=== PATIENT | male | born 1950 | race Caucasian/White ===

== ENCOUNTER 2019-01-24 12:53 | Outpatient (CLI) | payer MEDICARE ==
[2019-01-24] MEDS ORDERED: METO200T47 PO (13:39)
[2019-01-24] MEDS ORDERED: GLIM4TAB2 PO (13:39)
[2019-01-24] MEDS ORDERED: SPIR25TA5 PO (13:39)
[2019-01-24] MEDS ORDERED: LEVO150T5 PO (13:39)
[2019-01-24] MEDS ORDERED: POTA20TA6 PO (13:39)
[2019-01-24] MEDS ORDERED: LOSA100T14 PO (13:39)
[2019-01-24] MEDS ORDERED: LIRA0.6P INJ (13:39)
[2019-01-24] MEDS ORDERED: INSU100I13 SC (13:39)
[2019-01-24] MEDS ORDERED: SIMV40TA3 PO (13:39)
[2019-01-24] MEDS ORDERED: CANA300T PO (13:39)
[2019-01-24 14:07] LABS: BASOPHILS # (AUTO) 0.04 x10^3/uL (0-0.1); BASOPHILS % (AUTO) 0 % (0-1); EOSINOPHILS # (AUTO) 0.58 x10^3/uL (0-0.4); EOSINOPHILS % (AUTO) 5 % (1-7); LYMPHOCYTES # (AUTO) 2.29 x10^3/uL (1-3.4); LYMPHOCYTES % (AUTO) 21 % (22-44); MD NO; MEAN CORPUSCULAR HEMOGLOBIN 28.1 pg (27.5-34.5); MEAN CORPUSCULAR HGB CONC 32.6 g/dL (33.2-36.2); MEAN CORPUSCULAR VOLUME 86.3 fL (81-97); MEAN PLATELET VOLUME 8.5 fL (7.4-10.4); MONOCYTES # (AUTO) 0.96 x10^3/uL (0.2-0.8); MONOCYTES % (AUTO) 9 % (2-9); NEUTROPHILS # (AUTO) 7.16 x10^3/uL (1.8-6.8); NEUTROPHILS % (AUTO) 65 % (42-75); PLATELET COUNT 233 x10^3/uL (130-400); RED BLOOD COUNT 5.74 x10^6/uL (4.38-5.82); RED CELL DISTRIBUTION WIDTH 14.2 % (9.4-14.8)
[2019-01-24 14:16] LABS: ALBUMIN 4.1 g/dL (3.4-5.0); ANION GAP 5 mmol/L (5-15); CALCIUM 8.8 mg/dL (8.5-10.1); CHLORIDE 105 mmol/L (98-107)
[2019-01-24 14:19] LABS: ALANINE AMINOTRANSFERASE 35 U/L (12-78); ALKALINE PHOSPHATASE 70 U/L (45-117); BILIRUBIN,TOTAL 0.5 mg/dL (0.2-1.0); CREATININE 1.51 mg/dL (0.7-1.3); TOTAL PROTEIN 7.7 g/dL (6.4-8.2)
[2019-01-24 14:23] LABS: INTERNATIONAL NORMALIZED RATIO 0.97 (0.93-1.1); PROTHROMBIN TIME 10.2 Seconds (9.6-11.5)
== END 2019-01-24 23:59 | disposition home or self-care (01) ==
LOC: STAR 12:53
PROVIDERS: ATTEND Surgery
DX: Z01.818 Encounter for other preprocedural examination (principal); R94.31 Abnormal electrocardiogram [ECG] [EKG]
CPT/HCPCS: 36415; 80053; 85025; 85610; 93005

== ENCOUNTER 2019-02-02 06:23 | Day surgery (SDC) | payer MEDICARE ==
[~2019-02-02] VITALS: Ht 177.8 cm; Wt 100.0 kg
[~2019-02-02 06:23] MED LIST: CANA300T PO; GLIM4TAB2 PO; INSU100I13 SC; LEVO150T5 PO; LIRA0.6P INJ; LOSA100T14 PO; METO200T47 PO; POTA20TA6 PO; SIMV40TA3 PO; SPIR25TA5 PO
[2019-02-02] MEDS ORDERED: LACTATED RINGERS 1,000 ML IV SCH (06:40)
[2019-02-02] MEDS ORDERED: BUPIVACAINE/PF 0.5% ONE (08:06)
[2019-02-02] MEDS ORDERED: EPINEPHRINE 1 MG/ML, 1ML ONE (08:07)
[2019-02-02] MEDS ORDERED: MIDAZOLAM 1 MG/ML, 2ML ONE (08:11)
[2019-02-02] MEDS ORDERED: FENTANYL PF 250 MCG/5ML ONE (08:12)
[2019-02-02] MEDS ORDERED: PHENYLEPHRINE 10 MG/ML ONE (08:24)
[2019-02-02] MEDS ORDERED: PROPOFOL 10 MG/ML, 20ML ONE (09:03)
[2019-02-02] MEDS ORDERED: LIDOCAINE-MPF 2% ,5ML ONE (09:03)
[2019-02-02] MEDS ORDERED: ONDANSETRON 2MG/ML, 2ML ONE (09:03)
[2019-02-02] MEDS ORDERED: DEXAMETHASONE 4 MG/ML, 1ML ONE (09:03)
[2019-02-02] MEDS ORDERED: WATER-INJECTION,STERILE 10 ML IV ONE (09:03)
[2019-02-02] MEDS ORDERED: CEFAZOLIN 1,000 MG ONE (09:03)
[2019-02-02] MEDS ORDERED: MEPERIDINE/PF 25MG/0.5ML IVPush PRN (09:30)
[2019-02-02] MEDS ORDERED: HALOPERIDOL 5 MG/ML IV PRN (09:30)
[2019-02-02] MEDS ORDERED: HYDROmorphone 2 MG/ML, 1ML IVPush PRN (09:30)
[2019-02-02] MEDS ORDERED: PROMETHAZINE 25 MG/ML, 1ML IV PRN (09:30)
[2019-02-02] MEDS ORDERED: LORazepam 2 MG/ML, 1ML IVPush PRN (09:30)
[2019-02-02] MEDS ORDERED: FENTANYL PF 100 MCG/2ML IV PRN (09:30)
[2019-02-02] MEDS ORDERED: OXYcodone 5 MG/5 ML ORAL.SOL UDC PO PRN (09:30)
[2019-02-02] MEDS ORDERED: ACETAMINOPHEN 325 MG TABLET PO PRN (09:30)
[2019-02-02] MEDS ORDERED: hydrALAzine 20 MG/ML, 1ML IV PRN (09:30)
[2019-02-02] MEDS ORDERED: OXYcodone 5 MG/5 ML ORAL.SOL UDC ONE (09:56)
[2019-02-02] MEDS ORDERED: FENTANYL PF 100 MCG/2ML ONE (09:56)
[2019-02-02] MEDS ORDERED: ACETAMINOPHEN 650 MG/20.3 ML UDC ONE (09:56)
== END 2019-02-02 11:35 | disposition home or self-care (01) ==
LOC: OUT 06:23
PROVIDERS: ATTEND Surgery
DX: C44.619 Basal cell carcinoma of skin of left upper limb, including shoulder (principal); E78.00 Pure hypercholesterolemia, unspecified; I10 Essential (primary) hypertension; E89.0 Postprocedural hypothyroidism; E11.9 Type 2 diabetes mellitus without complications; Z98.890 Other specified postprocedural states; Z79.899 Other long term (current) drug therapy; Z72.89 Other problems related to lifestyle; Z79.84 Long term (current) use of oral hypoglycemic drugs
CPT/HCPCS: 24073; 82962; 88305; J0171; J0690; J1100; J2250; J2370; J2405; J2704; J3010; J3490; J7120